=== PATIENT | female | born 1955 ===

== ENCOUNTER 2017-02-17 09:22 | Day surgery (SDC) | payer MEDICAID ==
[2017-02-11 09:53] VITALS: BMI 24.4
[2017-02-17] MEDS ORDERED: Propofol 10 mg/ml Inj (20 ML) ONE ×2 (11:21→11:54)
[2017-02-17] MEDS ORDERED: Lidocaine 1% Inj (20ml) ONE (11:53)
[2017-02-17] MEDS ORDERED: Sodium Chloride 0.9% 1,000 ML IV SCH (12:15)
[2017-02-17 12:43] VITALS: O2SAT 99
[2017-02-17 13:33] VITALS: BP 139/60; PULSE 64; RESP 18; TEMP 97.4
== END 2017-02-17 13:57 | disposition home or self-care (01) ==
LOC: ENDO 09:22
PROVIDERS: ATTEND Internal Medicine Gastroenterology
DX: K29.50 Unspecified chronic gastritis without bleeding (principal); K21.9 Gastro-esophageal reflux disease without esophagitis; Z12.11 Encounter for screening for malignant neoplasm of colon; R10.13 Epigastric pain; K59.00 Constipation, unspecified; K64.8 Other hemorrhoids; E11.9 Type 2 diabetes mellitus without complications; E78.5 Hyperlipidemia, unspecified
CPT/HCPCS: 43239; 45378; 82948; 88305; 88312; 88342; J2704; J3010; J7040 ×2